=== PATIENT | male | born 1990 | race Caucasian/White ===

== ENCOUNTER 2025-07-14 00:57 | Emergency (ER) | payer SELFPAY ==
[~2025-07-14] VITALS: Ht 180.3 cm; Wt 90.3 kg
[2025-07-14] MEDS ORDERED: HYDROCODONE/APAP 5/325MG TABLET ONE (01:48)
[2025-07-14] MEDS: HYDROCODONE/APAP 5/325MG TABLET PO ONE (01:57)
[2025-07-14] MEDS: TDAP [DIPH/PERTUSSIS/TET] 0.5 ML VIAL IM ONE (02:03)
[2025-07-14] MEDS ORDERED: HYDR-3972 PO ×3 (02:57→20:51)
[2025-07-14] MEDS ORDERED: MORPHINE SULFATE INJ 4 MG/ML DISP.SYRIN ONE (03:04)
[2025-07-14] MEDS: MORPHINE SULFATE INJ 2 MG/ML DISP.SYRIN IM ONE (03:06)
[2025-07-14 03:24] VITALS: BP 132/79; TEMP 98.3; O2SAT 98
== END 2025-07-14 03:25 | disposition home or self-care (01) ==
LOC: ER 01:18
DX: S82.141A Displaced bicondylar fracture of right tibia, initial encounter for closed fracture (principal); S93.401A Sprain of unspecified ligament of right ankle, initial encounter; V89.2XXA Person injured in unspecified motor-vehicle accident, traffic, initial encounter; Y93.89 Activity, other specified; Y92.410 Unspecified street and highway as the place of occurrence of the external cause; Y99.8 Other external cause status
CPT/HCPCS: 29505; 73564; 73610; 90471; 90715; 96372; 99284; J2270